=== PATIENT | female | born 2000 | race Caucasian/White ===

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

== ENCOUNTER 2023-11-12 22:59 | Inpatient (IN) ==
[2023-11-13] MEDS ORDERED: LIDOCAINE 1% LOCAL 20 ML VIAL INFIL PRN (01:27)
[2023-11-13] MEDS ORDERED: OXYTOCIN 30 UNITS/NSS 30 UNITS/500 ML BAG IV PRN ×2 (01:27→10:04)
[2023-11-13] MEDS: LACTATED RINGER'S 1,000 ML IV PRN (01:35)
[2023-11-13 01:53] LABS: Hematocrit (blood only) 31.1 % (37.0-47.0); Hemoglobin 10.4 g/dl (12.0-16.0); Mean Corpuscular Hemoglobin 30.3 pg (25.0-34.0); Mean Corpuscular Hgb Conc 33.4 g/dL (32.0-36.0); Mean Corpuscular Volume 90.7 fL (80.0-100.0); Mean Platelet Volume 9.4 fL (9.4-12.4); Platelet Count 251 K/uL (130-400); RDW Coefficient of Variation 13.1 % (11.5-14.5); RDW Standard Deviation 43.3 fL (36.4-46.3); Red Blood Count 3.43 M/uL (4.20-5.40); White Blood Count 15.02 K/ul (4.8-10.8)
[2023-11-13] MEDS: BUTORPHANOL TARTRATE 2 MG/ML VIAL ONE (03:41)
[2023-11-13] MEDS: BUTORPHANOL TARTRATE 2 MG/ML VIAL IV ONE (04:12)
[2023-11-13] MEDS: OXYTOCIN 30 UNITS/NSS 30 UNITS/500 ML BAG IV PRN (05:42)
--- NOTE | 2023-11-13 07:00 | History & Physical Report ---
Date of Service November 13, 2023 Assessment & Plan (1) Normal labor: Plan pt was admitted. she did have pitocin aug begun and now requests epidural. will recheck her cx after comfortable or prn. fhts categ 1. bsgs q2h in active labor. Admission and Anticipated Discharge Date Admission Date: November 13, 2023 History of Present Illness Chief Complaint: regular ctx Primary Care Provider: Janie Hartmann, DO 23yo at 38+wks eggreg presents to LD at first thinking she was leaking fluid but contractions increased and admitted in active labor. This is late entry due to system downtime at time of her admission. She is now requesting epidural. Was 4cm and arom done for clear fluid @330am today. Had one dose of stadol and did sleep. PNC c/b 1. GDM diet controlled PNL rh pos, ri, gbs neg OBH: g1 GYNH: nl paps no stds Allergies Allergy/AdvReac Type Severity Reaction Status Date / Time cat dander Allergy Mild congestion Verified 11/11/23 14:04 No Known Drug Allergies Allergy NKDA Verified 11/11/23 14:04 Home Medications Medication Instructions Recorded Confirmed Type vit 168-iron 27 mg-folic 1 cap PO DAILY 04/08/23 11/13/23 History acid 800 mcg-omega3 235 mg capsule (One-A-Day -1) Patient History Surgical History History of ankle surgery History of wisdom tooth extraction Family History Aunt Colorectal cancer, Onset Age: 42 Hypertension Father Alcohol abuse Sister Anxiety Depression Grandfather (Paternal) No problems noted. Grandmother (Paternal) Diabetes Mother Thyroid disease Grandfather (Maternal) Prostate cancer Myocardial infarction Other Clotting disorder Endometriosis Denies family history of Ovarian cancer Breast cancer Social History Smoking Status: Former smoker Second Hand Exposure: Yes (in past); Do You Dip or Chew Tobacco: No; Tobacco Cessation Education Requested by Patient: No Hx Alcohol Use: Yes (social) Alcohol type: beer and wine Alcohol Intake Frequency: Monthly or Less Alcohol Intake Frequency Comment: social Hx Substance Use: No Preferred Language: Sami Communication Ability: Effective Visual Impairment: Limited Hearing Ability: Normal Materials Recycler Required: No Beliefs That Will Affect Care: None marital status: Single marital status details: (27) [phone] Current Living Situation: Significant Other Current Living Situation Comment: lives with current occupational status: employed current occupation: [employer] How many Children do You have: 0 Other Information That Helps Us Care for You: No Feels Safe at Home: Yes Safety Concerns: Feels Safe At This Time Childhood Exposure to Second-Hand Smoke: Yes Diet: regular caffeine: Yes during the past year weight has: increased > 10 lbs Dental Care, Regularly: Yes Physical Activity Frequency: Daily Physical Activity Frequency Comment: Exercises regularly. Seatbelt Use: always Sunscreen Use: No Assistive Devices: None Review of Systems as per Subjective / HPI Physical Exam Constitutional: WD/WN, vitals as above Respiratory: normal respiratory effort, lungs clear to auscultation Cardiovascular: Rate/Rhythm: regular rate and regular rhythm Gastrointestinal (Abdomen): soft gravid nt Musculoskeletal: tr edema Neurologic: grossly normal Psychiatric: A+Ox3, euthymic affect Genitourinary: Manual OB Exam: + cervical dilation 4 cm (330am today) OB Exam Monitor Tracing: + external FHT monitor used, + external uterine monitor used (q2-3), + category I and + normal FHT variability Results & Data Vital Signs (Past 12 Hours) Vital Signs Temp Pulse Resp BP Pulse Ox 11/13/23 06:15 75 135/80 11/13/23 06:00 18 11/13/23 06:00 98.6 F 18 11/13/23 05:58 81 146/76 H 11/13/23 05:27 81 126/71 11/13/23 05:15 79 120/58 L 11/13/23 04:58 93 H 157/94 H 11/13/23 04:43 78 120/66 11/13/23 04:27 89 130/65 11/13/23 04:14 89 125/62 11/13/23 04:00 18 11/13/23 04:00 99.7 F H 18 11/13/23 03:57 89 138/87 11/13/23 03:19 206 H 84 L 11/13/23 01:53 80 141/68 H 11/13/23 00:14 98.1 F 18 11/12/23 23:23 95 H 132/85 11/12/23 23:20 94 H 152/97 H Code Status & VTE Plan VTE Prophylaxis Plan VTE Prophylaxis will be ordered: No Reason for no VTE drug order: Treatment not indicated Coding Level of Care Code None Diagnoses Normal labor O80; Z37.9
[2023-11-13] MEDS: fentANYL 2 MCG/ML BUPIVacaine 0.125%-NSS 100ML BAG ONE (07:29)
[2023-11-13] MEDS: BUPIVACAINE 0.25% PF 30 ML VIAL ONE (07:36)
[2023-11-13] MEDS: LIDOCAINE 2%/EPINEPHRINE 1:200,000 20 ML PF ONE (07:37)
[2023-11-13] MEDS: SODIUM CHLORIDE 0.9% PF INJ 10 ML VIAL ONE (07:37)
[2023-11-13] MEDS ORDERED: NALBUPHINE HCL 5 MG in SYRINGE 0 ML IV PRN (07:38)
[2023-11-13] MEDS ORDERED: NALOXONE HCL 0.4 MG/1 ML VIAL/CARP IV PRN (07:38)
[2023-11-13] MEDS ORDERED: SODIUM CHLORIDE 0.9% PF INJ 10 ML VIAL EPI PRN (07:38)
[2023-11-13] MEDS ORDERED: fentANYL 2 MCG/ML BUPIVacaine 0.125%-NSS 100ML BAG EPI PRN (07:38)
[2023-11-13] MEDS ORDERED: ROPIVACAINE 0.5% PF 5 MG/ML 20 ML VIAL EPI PRN (07:38)
[2023-11-13] MEDS ORDERED: LIDOCAINE 2% MPF LOCAL 5 ML VIAL EPI PRN (07:38)
[2023-11-13] MEDS ORDERED: ePHEDrine sulfate 50 MG/ML AMP IV PRN (07:38)
[2023-11-13] MEDS ORDERED: diphenhydrAMINE 50 MG/ML VIAL IV PRN (07:38)
[2023-11-13] MEDS ORDERED: NALOXONE HCL 1 MG in SODIUM CHLORIDE 0.9% 1,000 ML IV PRN (07:38)
[2023-11-13] MEDS ORDERED: fentaNYL citrate PF 100 MCG/2 ML VIAL EPI PRN (07:38)
[2023-11-13] MEDS ORDERED: ONDANSETRON INJ 2 MG/ML 2 ML VIAL IV PRN (07:38)
[2023-11-13] MEDS ORDERED: BUPIVACAINE 0.25% PF 30 ML VIAL EPI PRN (07:38)
--- NOTE | 2023-11-13 08:18 | Labor Progress Brief Note ---
Date of Service November 13, 2023 Subjective pt feeling pressure in her butt Assessment & Plan (1) Normal labor: (2) Gestational diabetes mellitus (GDM) affecting , antepartum: Plan good progress in labor. c/w pit. fhts categ 1. Admission and Anticipated Discharge Date Admission Date: November 13, 2023 Physical Exam Constitutional: WD/WN, vitals as above Genitourinary: Manual OB Exam: + cervical dilation 7 cm, + cervical effacement 90% and + station -1 OB Exam Monitor Tracing: + external FHT monitor used, + external uterine monitor used (q2-4 pit 5), + category I and + normal FHT variability Results & Data Vital Signs (Past 12 Hours) Vital Signs Temp Pulse Resp BP Pulse Ox 11/13/23 08:10 89 132/79 11/13/23 08:09 84 99 11/13/23 08:05 86 138/79 11/13/23 08:04 87 100 11/13/23 07:59 88 98 11/13/23 07:55 102 H 158/110 H 11/13/23 07:54 98 H 100 11/13/23 07:49 97 H 100 11/13/23 07:44 99 H 99 11/13/23 07:39 99 11/13/23 07:39 87 11/13/23 07:39 81 155/89 H 11/13/23 07:36 90 136/83 11/13/23 07:35 79 141/84 H 11/13/23 07:34 81 100 11/13/23 07:30 16 11/13/23 07:30 16 11/13/23 07:29 84 97 11/13/23 07:26 88 150/92 H 11/13/23 07:24 99 11/13/23 07:24 91 H 11/13/23 07:24 83 146/95 H 11/13/23 07:21 85 159/98 H 11/13/23 07:19 106 H 98 11/13/23 07:15 97.7 F 11/13/23 07:14 85 96 11/13/23 07:09 83 96 11/13/23 07:07 83 94 11/13/23 07:06 88 156/77 H 11/13/23 07:04 78 99 11/13/23 06:15 75 135/80 11/13/23 06:00 18 11/13/23 06:00 98.6 F 18 11/13/23 05:58 81 146/76 H 11/13/23 05:27 81 126/71 11/13/23 05:15 79 120/58 L 11/13/23 04:58 93 H 157/94 H 11/13/23 04:43 78 120/66 11/13/23 04:27 89 130/65 11/13/23 04:14 89 125/62 11/13/23 04:00 18 11/13/23 04:00 99.7 F H 18 11/13/23 03:57 89 138/87 11/13/23 03:19 206 H 84 L 11/13/23 01:53 80 141/68 H 11/13/23 00:14 98.1 F 18 11/12/23 23:23 95 H 132/85 11/12/23 23:20 94 H 152/97 H Coding Level of Care Code None Diagnoses Normal labor O80; Z37.9 Gestational diabetes mellitus (GDM) affecting , antepartum O24.419
--- NOTE | 2023-11-13 09:57 | Delivery Summary ---
Vaginal Delivery Summary Date of Service November 13, 2023 Vaginal Delivery Summary and 2nd Degree LAC Spontaneous vaginal delivery the patient was admitted by Dr. Fonseca the evening before spontaneous labor and then requested epidural presented and fully dilated pushed over only a few contractions delivered a baby in occiput anterior position mouth and nares suctioned there was a tight nuchal cord cord was clamped and cut after delivery of the head baby was then delivered easily with gentle traction no excessive force live vigorous female infant Cord gases obtained cord blood obtained placenta removed with gentle traction IV Pitocin started uterine tone improved second-degree tear was noted this was repaired with 3-0 Vicryl in the usual fashion sponge and instrument counts were correct estimated blood loss 250 mL rectal exam negative for any defects or sutures [facility] Vaginal Delivery Charge Delivery Type Details: and 2nd Degree LAC
[2023-11-13] MEDS ORDERED: bisacodyL 10 MG SUPP PR PRN (10:04)
[2023-11-13] MEDS ORDERED: HYDROCORTISONE ACETATE 25 MG SUPP PR PRN (10:04)
[2023-11-13] MEDS ORDERED: ACETAMINOPHEN 325 MG TAB PO PRN (10:04)
[2023-11-13 11:39] LABS: Base Excess Cord Arterial Bld -2.2 mEq/L (-9-1.8); CO2 Cord Arterial Blood 66 mmHg (39.1-73.5); HCO3 Cord Arterial Blood 27 mmol/L (19.7-28.5); Oxygen Sat Cord Arterial Blood < 60.0 % (<60); PO2 Cord Arterial Blood < 20 mmHg (4.1-31.7); pH Cord Arterial Blood 7.22 (7.1-7.38)
[2023-11-13 11:43] LABS: Base Excess Cord Venous Blood -5.4 mEq/L (-7.7-1.9); Cord Venous Blood HCO3 22 mmol/L (18.4-26.8); Cord Venous Blood PCO2 47 mmHg (30.4-57.2); Cord Venous Blood PO2 32 mmHg (14.1-43.3); Cord Venous Blood pH 7.27 (7.20-7.44); O2 Saturation Cord Venous Bld 63.7 % (<68)
--- NOTE | 2023-11-13 12:04 | Anesthesia Procedure Note ---
Date of Service November 13, 2023 Anesthesia Post Epidural Note Vital Signs Vital Signs: Temp Pulse Resp BP Pulse Ox 36.5 C 103 H 16 144/63 H 94 11/13/23 07:15 11/13/23 11:54 11/13/23 07:30 11/13/23 11:54 11/13/23 09:54 Notes Mental Status: alert / awake / arousable Nausea / Vomiting: adequately controlled Pain: adequately controlled Airway Patency, RR, SpO2: stable & adequate BP & HR: stable & adequate Hydration State: stable & adequate Neuraxial Anesthesia: was administered and sensory block is resolving Anesthetic Complications: no major complications apparent and Pt Satisfied with anesthetic care Epidural: Removed without complications and With tip intact
[2023-11-13] MEDS: DIPHTHER/TETAN/PERTUS Vaccine (Tdap, Adol/Adult) 0.5mL IM ONE (13:06)
[2023-11-13] MEDS: IBUPROFEN 600 MG TAB PO PRN (15:56)
[2023-11-13] MEDS: BENZOCAINE 20% SPRY 85 APPLN/85 GM CAN EXT PRN (15:58)
[2023-11-13] MEDS: DOCUSATE SODIUM 100 MG CAP PO SCH (21:08)
[2023-11-13] MEDS: ePHEDrine sulfate 50 MG/ML AMP ONE (23:06)
[2023-11-13] MEDS: fentaNYL citrate PF 100 MCG/2 ML VIAL ONE (23:07)
[2023-11-13] MEDS: LIDOCAINE 2%/EPINEPHRINE 1:200,000 20 ML PF EPI STA (23:08)
[2023-11-13] MEDS: fentaNYL citrate PF 100 MCG/2 ML VIAL EPI STA (23:08)
[2023-11-13] MEDS: SODIUM CHLORIDE 0.9% PF INJ 10 ML VIAL EPI STA (23:08)
[2023-11-13] MEDS: BUPIVACAINE 0.25% PF 30 ML VIAL EPI STA (23:08)
[2023-11-14 06:26] LABS: Hematocrit (blood only) 29.4 % (37.0-47.0); Hemoglobin 9.6 g/dl (12.0-16.0)
--- NOTE | 2023-11-14 06:56 | Obstetrical Progress Note ---
Date of Service <Ave Turner MD - Last Filed: 11/14/23 06:57> November 14, 2023 Assessment & Plan <Ave Turner MD - Last Filed: 11/14/23 06:57> (1) Encounter for assessment: Plan Patient with the above mentioned history and findings was evaluated at bedside and found awake, alert, oriented in all spheres, afebrile, and in no acute distress. Vital signs showed no fever and blood pressures elevated yesterday and ranging between 140s-160s systolic and 60-90s diastolic. Last 18 hours with normal BP with highest one being 133/83. Patient without headaches, SOB, chest pain, RUQ pain, or any other symptom. Her blood type is A positive and today's hemoglobin is adequate at 9.6 g/dL. She denies symptoms of anemia such as lightheadedness, dizziness with standing, palpitations or tachycardia. Serologies are negative for GBS and patient is Rubella immune. Overall, patient is doing well clinically and meeting the desired milestone for her course. Will continue routine pp care. All questions were answered. <Soledad Mtz MD, FACOG - Last Filed: 11/14/23 07:21> (1) Encounter for assessment: Subjective <Ave Turner MD - Last Filed: 11/14/23 06:57> Kizzy is a 23 y/o female who is now PPD # 1 following at 38 weeks. Reports feeling well overall this morning. Refers mild abdominal cramping & 1/10 pain well managed on analgesics. Voiding spontaneously. Tolerating meals overnight and able to ambulate some. Has been passing gas but no bm yet. Some persistent lochia with some improvement this morning. with some difficulty. Constitutional: no fever, no chills or no sweats Denies shortness of breath or difficulty breathing Cardiovascular: no chest pain or no palpitations Breast: no breast pain Genitourinary (female): no dysuria Neurologic: no headache(s) Denies changes in vision Physical Exam <Ave Turner MD - Last Filed: 11/14/23 06:57> General: Alert. Oriented to person, time, and place. Afebrile. No acute distress. Cardiac: Regular rate and rhythm, no murmurs/rubs/gallops. Respiratory: Clear to auscultation bilaterally a/p, no wheezes/rales/rhonchi. No increased work of breathing. Symmetrical chest rise. No respiratory distress. Abdomen: Soft, nontender, nondistended. Bowel sounds present. Uterus: Uterine fundus firm, nontender, and palpable at umbilicus. Lower Extremities: Mild bilateral LE swelling. No deep calf pain. Kimani's negative bilaterally. Psych: Euthymic affect. Mood and affect congruence. Regular speech rate and content. Results & Data <Ave Turner MD - Last Filed: 11/14/23 06:57> Vital Signs (Past 12 Hours) Vital Signs Temp Pulse Resp BP Pulse Ox O2 Del Method 11/14/23 03:18 36.5 C 76 18 125/78 99 Room Air 11/13/23 23:01 36.5 C 80 18 116/73 96 Room Air 11/13/23 20:45 36.9 C 86 20 133/83 97 Room Air Supervising Physician <Soledad Mtz MD, FACOG - Last Filed: 11/14/23 07:21> Co-Signing Physician Notes Resident Physician Supervision Note: I was present with Dr. Turner during the history and exam. I discussed the case with the resident and agree with the findings and plan as documented in the note. Any exceptions or clarifications are listed here: [None] Documented By: Soledad Mtz MD, FACOG
[2023-11-14] MEDS: PRENATAL VITAMIN 1 TAB PO SCH (08:21)
[2023-11-14] MEDS ORDERED: NON-FORMULARY MEDICATION (Prenatal 168-Iron-Folic-Omega3 [One-A-Day Prenatal-1] 27 mg iron PO SCH (09:00)
[2023-11-14] MEDS: bisacodyL 5 MG TABEC PO SCH (20:57)
--- NOTE | 2023-11-15 08:42 | Obstetrical Progress Note ---
Date of Service <Ave Turner MD - Last Filed: 11/15/23 08:42> November 15, 2023 Assessment & Plan <Ave Turner MD - Last Filed: 11/15/23 08:42> (1) Encounter for assessment: Plan Patient with the above mentioned history and findings was evaluated at bedside and found awake, alert, oriented in all spheres, afebrile, and in no acute distress. Vital signs showed no fever and blood pressures stable. Her blood type is A positive and recent hemoglobin is adequate at 9.6 g/dL. She denies symptoms of anemia such as lightheadedness, dizziness with standing, palpitations or tachycardia. Serologies are negative for GBS and patient is Rubella immune. Overall, patient is doing well clinically and meeting the desired milestone for her course. Therefore, will discharge patient today. Patient was counselled on discharge instructions. She is to make an appointment with her OB for 6 weeks after discharge for follow up evaluation. All questions were answered. <Afshin Kyle MD - Last Filed: 11/17/23 09:10> (1) Encounter for assessment: Subjective <Ave Turner MD - Last Filed: 11/15/23 08:42> Kizzy is a 23 y/o female who is now PPD # 2 following at 38 weeks. Reports feeling well overall this morning. Refers mild abdominal cramping & 1/10 pain well managed on analgesics. Voiding spontaneously. Tolerating meals overnight and able to ambulate some. Has been passing gas but no bm yet. Some persistent lochia with some improvement this morning. . Constitutional: no fever, no chills or no sweats Denies shortness of breath or difficulty breathing Cardiovascular: no chest pain or no palpitations Breast: no breast pain Genitourinary (female): no dysuria Neurologic: no headache(s) Denies changes in vision Physical Exam <Ave Turner MD - Last Filed: 11/15/23 08:42> General: Alert. Oriented to person, time, and place. Afebrile. No acute distress. Cardiac: Regular rate and rhythm, no murmurs/rubs/gallops. Respiratory: Clear to auscultation bilaterally a/p, no wheezes/rales/rhonchi. No increased work of breathing. Symmetrical chest rise. No respiratory distress. Abdomen: Soft, nontender, nondistended. Bowel sounds present. Uterus: Uterine fundus firm, nontender, and palpable at umbilicus. Lower Extremities: Mild bilateral LE swelling. No deep calf pain. Kimani's negative bilaterally. Psych: Euthymic affect. Mood and affect congruence. Regular speech rate and content. Results & Data <Ave Turner MD - Last Filed: 11/15/23 08:42> Vital Signs (Past 12 Hours) Vital Signs Temp Pulse Resp BP Pulse Ox O2 Del Method 11/15/23 07:27 36.8 C 83 16 123/76 Room Air 11/14/23 23:45 36.9 C 94 H 20 134/83 98 Room Air Supervising Physician <Afshin Kyle MD - Last Filed: 11/17/23 09:10> Co-Signing Physician Notes Seen with resident and agree with the above findings and plan. Stable for discharge
== END 2023-11-15 11:00 | disposition home or self-care (01) | DRG 807 ==
LOC: OPB 22:59 → 4S1 23:01 → 4E2 11-13 12:15
DX: Z37.0 Single live birth; O69.81X0 Labor and delivery complicated by cord around neck, without compression, not applicable or unspecified; Z3A.38 38 weeks gestation of pregnancy; O24.420 Gestational diabetes mellitus in childbirth, diet controlled